=== PATIENT | male | born 1985 | race Caucasian/White ===

== ENCOUNTER 2018-02-11 18:00 | Emergency (ER) | payer OTHER ==
[2018-02-11] MEDS ORDERED: Sodium Chloride 0.9% 1,000 ML IV ONE (18:04)
[2018-02-11] MEDS ORDERED: Diphtheria,Pertussis(Acell),Tetanus Vaccine 0.5 ML Syringe IM ONE (18:05)
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
[2018-02-11] MEDS ORDERED: Iopamidol 755 MG/ML 500 ML Multipack Bottle IVPUSH ONE (19:20)
[2018-02-11 19:26] LABS: CHLORIDE,CL 104 mmol/L (98-107); SODIUM,NA 138 mmol/L (136-148)
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
== END 2018-02-11 21:25 | disposition home or self-care (01) ==
LOC: MW.ED 18:00
DX: S06.0X9A Concussion with loss of consciousness of unspecified duration, initial encounter (principal); S20.219A Contusion of unspecified front wall of thorax, initial encounter; F10.129 Alcohol abuse with intoxication, unspecified; Y90.5 Blood alcohol level of 100-119 mg/100 ml; V43.53XA Car driver injured in collision with pick-up truck in traffic accident, initial encounter; Z91.14 Patient's other noncompliance with medication regimen
CPT/HCPCS: 36415; 70450; 71045; 71260; 72125; 72170; 73090; 74177; 80053; 80305; 81001; 82550; 82553; 84484; 85025; 85610; 86850; 86900; 86901; 86902; 90471; 90715; 93005; 96360; 99285; G0390; G0480; J7040; Q9967